=== PATIENT | male | born 1945 ===

== ENCOUNTER 2017-10-23 22:53 | Observation (INO) | payer MEDICARE ==
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
[2017-10-23] MEDS ORDERED: NS(*) 0.9% 1000 ML BAG 1,000 ML IV ONE (23:06)
[2017-10-23 23:16] LABS: PLATELET COUNT, AUTOMATED 231 K/uL (150-450)
[2017-10-24] MEDS ORDERED: KETAMINE HCL 200 MG/20 ML MDV IVP ONE ×3 (00:35→01:10)
[2017-10-24] MEDS ORDERED: IOPAMIDOL 76% 100 ML INFUS BTL 100 ML ONE (00:49)
[2017-10-24] MEDS ORDERED: NS 0.9% 25 ML BAG 50 ML ONE (00:50)
[2017-10-24] MEDS ORDERED: ONDANSETRON 4 MG/2 ML VIAL IVP ONE (00:55)
[2017-10-24] MEDS ORDERED: KETAMINE HCL 200 MG/20 ML MDV ONE (01:08)
--- NOTE | 2017-10-24 01:23 | RADIOLOGY IMAGING REPORT ---
FACILITY[place] [facility] [place] NAME: Harry Mejia : 1945 MR: [id number] V: [id number] EXAM DATE: ORDERING PHYSICIAN: PALMIRA MCDANIEL TECHNOLOGIST: Location: [facility] Patient: Harry Mejia : 1945 Visit/Account:[id number] Date of Sevice: 10/23/2017 CT Head without contrast Indication: Altered mental status, confused. Comparison: None available. Technique: Axial CT images were obtained through the brain from the skull base to the vertex without administration of IV contrast. One of the following dose optimization techniques was utilized in th e performance of this exam: Automated exposure control; adjustment of the mA and/or kV according to t he patient's size; or use of an iterative reconstruction technique. Specific details can be referen gonzalez in the facility's radiology CT exam operational policy. Findings: No evidence of mass, mass effect, or midline shift. No acute intracranial hemorrhage or acute territorial infarction. Suspected remote lacunar infarcts near the left caudate head and left thalamus. Skull is nonacute. Bilateral lens surgeries. The visualized paranasal sinuses and mastoid air spaces are clear. IMPRESSION: No acute intracranial abnormality. Report Dictated By: Heladio Deleon MD at 10/24/2017 1:17 AM Report E-Signed By: Heladio Deleon MD at 10/24/2017 1:19 AM WSN:[id number]
--- NOTE | 2017-10-24 01:54 | RADIOLOGY IMAGING REPORT ---
FACILITY: [facility] [place] PATIENT NAME: Harry Mejia : 1945 MR: [id number] V: [id number] EXAM DATE: ORDERING PHYSICIAN: PALMIRA MCDANIEL TECHNOLOGIST: Location: [facility] [place] Patient: Harry Mejia : 1945 Visit/Account:[id number] Date of Sevice: 10/24/2017 CT PE DATE: 10/24/2017 1:36 AM INDICATION: Hypoxia. COMPARISON: None. TECHNIQUE: Axial CT angiogram was obtained through the chest with intravenous contrast. Sagittal an d coronal MPR and MIP coronal reformations were also generated. 75 mL isovue 370. One of the follow ing dose optimization techniques was utilized in the performance of this exam: Automated exposure con trol; adjustment of the mA and/or kV according to the patient's size; or use of an iterative reconst ruction technique. Specific details can be referenced in the facility's radiology CT exam operationa l policy. FINDINGS: Thyroid / Thoracic Inlet: No adenopathy. Punctate calcification in the right thyroid lobe. Pulmonary Arteries: No pulmonary embolism. Heart and Aorta: Normal-size heart with no pericardial effusion. Prominent coronary artery calcific ations. Nonaneurysmal thoracic aorta with mild atherosclerosis. Mediastinum and Janeen: Mildly enlarged hilar lymph nodes are likely reactive. Lungs and Pleura: No pleural effusion or pneumothorax. Multifocal patchy opacification and groundgl ass nodularity in the right lower lobe, as well as bronchial wall thickening with scattered mucous pl ugging. Spiculated right upper lobe nodule measuring 5 mm in diameter on image 137 series 5. Additi onal findings millimeters nodule in the left lower lobe on image 325 series5. Breast and Axilla: No axillary lymphadenopathy. Upper Abdomen: No visualized acute abnormality. Left renal cyst. Bones and Soft Tissues: No suspicious osseous or soft tissue abnormality. Remote left scapula fract ure. IMPRESSION: 1. No pulmonary embolism. 2. Suspected right lower lobe pneumonia. 3. Prominent coronary artery calcifications. 4. Right upper and left lower lobe pulmonary nodules measuring up to 5 mm in diameter. These may be infectious or inflammatory as well. Current Fleischner Society recommendations for incidental pulmo nary nodules <6mm in size (average of long and short axis): - In a patient with low risk for malignancy (i.e., minimal or absent smoking history, no known malig amparo or other risk factors): No routine follow-up. - In a patient at high risk for malignancy (e.g., smoking history and/or other known risk factors): Optional noncontrast CT at 12 months. If unchanged no further follow-up necessary. Nodules less than 6 mm do not require routine follow-up, but certain patients at high risk with suspi cious nodule morphology, upper lobe location, or both may warrant 12 month follow-up. Zuleyma H, Judy D, Pat J, et al. Guidelines for management of small pulmonary nodules detected on CT images: from the Fleischner society 2017. Report Dictated By: Heladio Deleon MD at 10/24/2017 1:36 AM Report E-Signed By: Heladio Deleon MD at 10/24/2017 1:49 AM WSN:[id number]
[2017-10-24] MEDS ORDERED: methylPREDNIS SUCC 125 MG/2ML IVP ONE (02:35)
[2017-10-24] MEDS ORDERED: cefTRIAXone 1 GM VIAL IVP ONE (02:35)
[2017-10-24] MEDS ORDERED: LEVOFLOXACIN 500 MG TAB PO ONE (02:35)
[2017-10-24] MEDS ORDERED: NICOTINE 21 MG/24 HR PATCH TD ONE (04:40)
--- NOTE | 2017-10-24 06:13 | EKG ---
FACILITY: [facility] PATIENT NAME: CRYSTAL PRECIADO : [id number] MR: [id number] V: [id number] EXAM DATE: ORDERING PHYSICIAN: PALMIRA MCDANIEL TECHNOLOGIST: JASSON Test Reason : DYSPNEA, AMS Blood Pressure : / mmHG Vent. Rate : 062 BPM Atrial Rate : 062 BPM P-R Int : 140 ms QRS Dur : 098 ms QT Int : 444 ms P-R-T Axes : -26 073 067 degrees QTc Int : 450 ms Normal sinus rhythm Possible Inferior infarct , age undetermined Abnormal ECG No previous ECGs available Referred By: Confirmed By:
[2017-10-24 06:16] VITALS: BP 164/75
[2017-10-24] MEDS ORDERED: LORazepam 2 MG/ML VIAL ONE (06:33)
[2017-10-24] MEDS ORDERED: INFLUENZA VIRUS VAC 0.5 ML SYR IM ONLY ONE (06:40)
[2017-10-24] MEDS ORDERED: FLUSH 10 ML SYR IVP PRN (06:40)
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
[2017-10-24] MEDS ORDERED: NICOTINE INH SYSTEM 10 MG/INH INH PRN (13:25)
[2017-10-24] MEDS ORDERED: LORazepam 2 MG/ML VIAL IVP PRN (13:25)
[2017-10-24] MEDS ORDERED: ALBUTEROL/IPRATROPIUM 3 ML NEB NEB ONE (13:30)
[2017-10-24] MEDS ORDERED: NICOTINE CARTRIDGE 1 EA PO PRN (13:40)
[2017-10-24 14:09] VITALS: BP 137/68
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
[2017-10-24] MEDS ORDERED: NIC10R INH (16:25)
== END 2017-10-24 16:01 | disposition home or self-care (01) ==
LOC: ER 22:57 → INTOOBSV 10-24 05:48 → MED 10-24 05:48
PROVIDERS: ADMIT Internal Medicine; ATTEND Internal Medicine
DX: R41.0 Disorientation, unspecified (principal); J18.1 Lobar pneumonia, unspecified organism; R09.02 Hypoxemia; F12.10 Cannabis abuse, uncomplicated; Z87.820 Personal history of traumatic brain injury; R06.00 Dyspnea, unspecified
CPT/HCPCS: 36600; 80305; 81001; 82140; 82375; 82803; 83880; 84443; 84484; 85025; 85651; 86140; 87040; 93005; 96361; 96374; 96375; 96376; 99284; A9270; G0378; G0480; J0696; J2060; J2405; J2930; J3490; J7030; Q9967; 80320; 82040; 82247; 82310; 82374; 82435; 82565; 82947; 84075; 84132; 84155; 84295; 84450; 84460; 84520

== ENCOUNTER → 2017-10-23 | Outpatient (CLI) | payer MEDICARE ==
[~2017-10-23] MED LIST: NIC10R INH
== END ==
LOC: AMB 22:31
PROVIDERS: ATTEND Nurse Practitioner
DX: R41.82 Altered mental status, unspecified (principal); R09.02 Hypoxemia
CPT/HCPCS: A0425; A0427